=== PATIENT | female | born 1965 | race Caucasian/White ===

== ENCOUNTER 2021-02-25 13:59 | Emergency (ER) | payer MEDICAID ==
[~2021-02-25] VITALS: Ht 170.2 cm; Wt 72.6 kg
[2021-02-25] MEDS ORDERED: DEXAMETHASONE 1 MG TABLET PO ONE (14:00)
[2021-02-25] MEDS ORDERED: DEXAMETHASONE 4 MG TABLET PO ONE (14:00)
--- NOTE | 2021-02-25 14:23 | NUR ---
THE PATIENT BIB HER FRIEND FOR C/O SCALP, FACIAL DISCOMFORT S/P HAIR DYE APPLICATION LAST SATURDAY. IN ROOM AIR AND DENIES SOB. RESPIRATION REGULAR AND UNLABORED. WILL CONTINUE TO MONITOR THE PATIENT.
[2021-02-25] MEDS: DEXAMETHASONE 1 MG TABLET PO ONE (14:37)
[2021-02-25] MEDS: diphenhydrAMINE HCL 50 MG CAPSULE PO ONE (14:37)
[2021-02-25] MEDS ORDERED: diphenhydrAMINE HCL 25 MG CAPSULE ONE (14:38)
[2021-02-25] MEDS ORDERED: DEXAMETHASONE 1 MG TABLET ONE (14:51)
--- NOTE | 2021-02-25 15:08 | NUR ---
The patient is alert and oriented x4. Patient discharged to home in stable condition. Written and verbal after care instructions given. Patient verbalizes understanding of instruction.
[2021-02-25 15:09] VITALS: BP 137/76
== END 2021-02-25 15:10 | disposition home or self-care (01) ==
LOC: ER 13:59
DX: T78.49XA Other allergy, initial encounter (principal); R22.0 Localized swelling, mass and lump, head; X58.XXXA Exposure to other specified factors, initial encounter
CPT/HCPCS: 99283; J8540 ×3; Q0163

== ENCOUNTER 2021-05-24 09:28 | Emergency (ER) | payer MEDICAID ==
[~2021-05-24] VITALS: Ht 170.2 cm; Wt 71.7 kg
--- NOTE | 2021-05-24 09:50 | NUR ---
PATIENT C/O NAUSEA AND VOMITING WORST X 1 WEEK, ANXIOUS [employer]. COVID+ X 13 DAYS. PATIENT ALERT AND ORIENTED X4, O S/SX OF RESPIRATORY DISTRESS NOTED. RESPIRATIONS EVEN AND UNLABORED. WILL CONTINUE TO MONITOR.
[2021-05-24] MEDS ORDERED: ONDANSETRON HCL 4 MG/5 ML SOLUTION ONE (09:52)
[2021-05-24] MEDS ORDERED: ONDANSETRON HCL 4 MG/5 ML SOLUTION PO ONE (10:00)
[2021-05-24 10:05] LABS: BASOPHILS % (AUTO) 0.5 % (0.0-2.0); EOSINOPHILS % (AUTO) 0.6 % (0.0-6.0); HEMATOCRIT 38 % (33-45); HEMOGLOBIN 12.9 g/dL (11.5-14.8); LYMPHOCYTES # (AUTO) 1.3 K/uL (0.8-4.8); LYMPHOCYTES % (AUTO) 25.4 % (20.0-44.0); MEAN CORPUSCULAR HGB CONC 34 g/dl (31.0-36.0); MEAN CORPUSCULAR VOLUME 86 fL (82-100); MONOCYTES # (AUTO) 0.5 K/uL (0.1-1.30); MONOCYTES % (AUTO) 8.6 % (2.0-12.0); NEUTROPHILS # (AUTO) 3.4 K/uL (1.8-8.9); NEUTROPHILS % (AUTO) 64.9 % (43.0-81.0); PLATELET COUNT (AUTO) 272 K/uL (150-450); WHITE BLOOD COUNT (AUTO) 5.3 K/uL (4.3-11.0)
[2021-05-24 10:14] LABS: CALCIUM, SERUM 9.6 mg/dL (8.5-10.1); CARBON DIOXIDE 26 mmol/L (21-32); CHLORIDE 107 mmol/L (98-107); CREATININE 0.7 mg/dL (0.6-1.3); GLUCOSE 101 mg/dL (74-106); POTASSIUM 3.6 mmol/L (3.5-5.1); SODIUM SERUM 144 mmol/L (136-145); UREA NITROGEN, BLOOD 10 mg/dL (7-18)
[2021-05-24 10:20] LABS: ALBUMIN 3.5 g/dL (3.4-5.0); BILIRUBIN,DIRECT 0.1 mg/dL (0.0-0.2); BILIRUBIN,TOTAL 0.4 mg/dL (0.2-1.0); TOTAL PROTEIN, SERUM 8.3 g/dL (6.4-8.2)
[2021-05-24] MEDS ORDERED: ONDA4TAB5 PO (10:41)
--- NOTE | 2021-05-24 11:14 | NUR ---
Patient discharged to home in stable condition. Written and verbal after care instructions given. Patient verbalizes understanding of instruction.
[2021-05-24 11:15] VITALS: BP 120/76
== END 2021-05-24 11:16 | disposition home or self-care (01) ==
LOC: ER 09:29
DX: U07.1 COVID-19 (principal); R11.2 Nausea with vomiting, unspecified; R03.0 Elevated blood-pressure reading, without diagnosis of hypertension; Z79.899 Other long term (current) drug therapy
CPT/HCPCS: 36415; 71045; 80048; 80076; 84484; 85025; 93005; 99285; Q0162

== ENCOUNTER 2022-02-20 10:24 | Emergency (ER) | payer MEDICAID ==
[~2022-02-20] VITALS: Ht 167.6 cm; Wt 72.6 kg
[~2022-02-20 10:24] MED LIST: ONDA4TAB5 PO
--- NOTE | 2022-02-20 10:39 | NUR ---
BIB FAMILY C/O NECK PRESSURE THAT RADIATE TO CHEST AND BACK FOR MONTHS. VITALS ARE WITHIN NORMAL LIMITS. AWAITING MD SY
--- NOTE | 2022-02-20 11:11 | NUR ---
RADIOLOGY AT BEDSIDE
[2022-02-20 11:15] LABS: BASOPHILS % (AUTO) 0.7 % (0.0-2.0); EOSINOPHILS % (AUTO) 1.2 % (0.0-6.0); HEMATOCRIT 39 % (33-45); LYMPHOCYTES # (AUTO) 1.9 K/uL (0.8-4.8); LYMPHOCYTES % (AUTO) 38.9 % (20.0-44.0); MEAN CORPUSCULAR HGB CONC 34 g/dl (31.0-36.0); MEAN CORPUSCULAR VOLUME 88 fL (82-100); MONOCYTES # (AUTO) 0.4 K/uL (0.1-1.30); MONOCYTES % (AUTO) 7.3 % (2.0-12.0); NEUTROPHILS # (AUTO) 2.5 K/uL (1.8-8.9); NEUTROPHILS % (AUTO) 51.9 % (43.0-81.0); PLATELET COUNT (AUTO) 167 K/uL (150-450); WHITE BLOOD COUNT (AUTO) 4.9 K/uL (4.3-11.0)
[2022-02-20 11:20] LABS: CALCIUM, SERUM 9.2 mg/dL (8.5-10.1); CARBON DIOXIDE 28 mmol/L (21-32); CHLORIDE 108 mmol/L (98-107); CREATININE 0.8 mg/dL (0.6-1.3); GLUCOSE 88 mg/dL (74-106); SODIUM SERUM 143 mmol/L (136-145); UREA NITROGEN, BLOOD 15 mg/dL (7-18)
[2022-02-20] MEDS ORDERED: IOHEXOL-300 100 ML VIAL IV ONE (11:36)
[2022-02-20] MEDS ORDERED: IV NS 0.9% 250 ML IV ONE (11:36)
[2022-02-20] MEDS ORDERED: CT SWABBABLE VALVE TRANS SET 1 EA INFUS.SET MC ONE (11:36)
--- NOTE | 2022-02-20 11:41 | NUR ---
PT TAKEN TO CT VIA WHEELCHAIR
[2022-02-20 12:36] VITALS: BP 149/95
--- NOTE | 2022-02-20 13:36 | NUR ---
IV removed. Catheter intact and site benign. Pressure and 4x4 applied to site. No bleeding noted.Patient discharged to home in stable condition. Written and verbal after care instructions given. Patient verbalizes understanding of instruction.
== END 2022-02-20 13:40 | disposition home or self-care (01) ==
LOC: ER 10:24
DX: E04.1 Nontoxic single thyroid nodule (principal); R13.10 Dysphagia, unspecified; R07.89 Other chest pain; K21.9 Gastro-esophageal reflux disease without esophagitis; I10 Essential (primary) hypertension; Z79.899 Other long term (current) drug therapy
CPT/HCPCS: 36415; 70491; 71045; 80048; 84484 ×2; 85025; 93005; 99285; J7050; Q9967

== ENCOUNTER 2022-08-13 09:39 | Emergency (ER) | payer MEDICAID ==
[~2022-08-13] VITALS: Ht 170.2 cm; Wt 76.7 kg
--- NOTE | 2022-08-13 09:47 | NUR ---
BIB FAMILY PRESSURE LIKE CHEST PAIN, UPPER BACK SINCE SATURDAY, PT STATED THAT SHE HAS HAD THIS PAIN PRIOR. PAIN IS 9/10 ON PAIN SCALE. PT ATTACHED TO MONITOR, NO RESP DISTRESS NOTED, BLOOD PRESSURE LEEVATED. PT FAMILY STATED HER BLOOD PRESSURE HAS BEEN FLUCTUATING TH PAST COUPLE DAYS. AWAITING MD SY.
--- NOTE | 2022-08-13 10:07 | NUR ---
IV ESTABLISHED L AC 20G. LABS DRAWN AND COLLECTED AT BEDSIDE
[2022-08-13 10:33] LABS: CALCIUM, SERUM 9.3 mg/dL (8.5-10.1); CREATININE 0.8 mg/dL (0.6-1.3)
[2022-08-13 10:43] LABS: BASOPHILS % (AUTO) 0.3 % (0.0-2.0); EOSINOPHILS % (AUTO) 1.3 % (0.0-6.0); HEMATOCRIT 39 % (33-45); HEMOGLOBIN 12.7 g/dL (11.5-14.8); LYMPHOCYTES # (AUTO) 1.7 K/uL (0.8-4.8); MEAN CORPUSCULAR HGB CONC 32 g/dl (31.0-36.0); MEAN CORPUSCULAR VOLUME 90 fL (82-100); MONOCYTES # (AUTO) 0.5 K/uL (0.1-1.30); MONOCYTES % (AUTO) 9.8 % (2.0-12.0); NEUTROPHILS # (AUTO) 2.4 K/uL (1.8-8.9); NEUTROPHILS % (AUTO) 51.6 % (43.0-81.0); PLATELET COUNT (AUTO) 156 K/uL (150-450); RED BLOOD CELL COUNT(AUTO) 4.38 MIL/uL (4.0-5.2); WHITE BLOOD COUNT (AUTO) 4.7 K/uL (4.3-11.0)
[2022-08-13 10:46] LABS: THYROID STIMULATING HORMONE 2.725 uIU/mL (0.358-3.74)
[2022-08-13] MEDS ORDERED: KETOROLAC TROMETHAMINE 15 MG/ML VIAL ONE (12:20)
--- NOTE | 2022-08-13 12:29 | NUR ---
IV removed. Catheter intact and site benign. Pressure and 4x4 applied to site. No bleeding noted.
[2022-08-13] MEDS ORDERED: KETOROLAC TROMETHAMINE INJ 30 MG/ML VIAL IV ONE (12:30)
--- NOTE | 2022-08-13 12:31 | NUR ---
Patient discharged to home in stable condition. Written and verbal after care instructions given. Patient verbalizes understanding of instruction.
[2022-08-13 12:33] VITALS: BP 134/86
== END 2022-08-13 12:34 | disposition home or self-care (01) ==
LOC: ER 09:50
DX: R07.89 Other chest pain (principal); I10 Essential (primary) hypertension; E04.1 Nontoxic single thyroid nodule
CPT/HCPCS: 99285; 96374; 71045; 93005; 85025; 80048; 36415; 84443; 84484; J1885

== ENCOUNTER 2024-01-05 20:36 | Emergency (ER) | payer MEDICAID ==
[~2024-01-05] VITALS: Ht 170.2 cm; Wt 76.7 kg
[2024-01-05] MEDS ORDERED: CLONIDINE HCL 0.1 MG TABLET ONE (21:20)
[2024-01-05] MEDS: CLONIDINE HCL 0.1 MG TABLET PO ONE (21:22)
[2024-01-05 21:37] LABS: BASOPHILS % (AUTO) 0.6 % (0.0-2.0); EOSINOPHILS # (AUTO) 0.1 K/uL (0.0-0.7); EOSINOPHILS % (AUTO) 1.1 % (0.0-6.0); HEMATOCRIT 39 % (33-45); HEMOGLOBIN 12.9 g/dL (11.5-14.8); LYMPHOCYTES # (AUTO) 2.2 K/uL (0.8-4.8); LYMPHOCYTES % (AUTO) 36.2 % (20.0-44.0); MEAN CORPUSCULAR HEMOGLOBIN 30 PG (26.0-33.0); MEAN CORPUSCULAR HGB CONC 34 g/dl (31.0-36.0); MEAN CORPUSCULAR VOLUME 89 fL (82-100); MONOCYTES # (AUTO) 0.5 K/uL (0.1-1.30); MONOCYTES % (AUTO) 7.8 % (2.0-12.0); NEUTROPHILS # (AUTO) 3.4 K/uL (1.8-8.9); NEUTROPHILS % (AUTO) 54.3 % (43.0-81.0); PLATELET COUNT (AUTO) 170 K/uL (150-450); RED BLOOD CELL COUNT(AUTO) 4.32 MIL/uL (4.0-5.2); RED CELL DISTRIBUTION WIDTH 13.2 % (11.5-15.0); WHITE BLOOD COUNT (AUTO) 6.2 K/uL (4.3-11.0)
[2024-01-05 22:15] LABS: CALCIUM, SERUM 9.4 mg/dL (8.5-10.1); CREATININE 1.1 mg/dL (0.6-1.3); POTASSIUM 3.8 mmol/L (3.5-5.1)
[2024-01-05 22:28] LABS: ALBUMIN 3.7 g/dL (3.4-5.0); BILIRUBIN,TOTAL 0.4 mg/dL (0.2-1.0)
[2024-01-05 23:22] VITALS: BP 136/97; TEMP 98; O2SAT 98
== END 2024-01-05 23:27 | disposition home or self-care (01) ==
LOC: ER 20:41
DX: I10 Essential (primary) hypertension (principal); E03.9 Hypothyroidism, unspecified
CPT/HCPCS: 36415; 71045-TC; 80053-TC; 83880; 84484-TC; 85025-TC